=== PATIENT | female | born 1950 | race Caucasian/White ===

== ENCOUNTER 2017-07-29 06:19 | Inpatient (IN) ==
--- NOTE | 2017-07-28 21:20 | Discharge Summary ---
<Otilia Bello - Last Filed: 07/29/17 09:29> Date of Encounter: 07/29/17 - Discharge Diagnosis (1) Left rotator cuff tear arthropathy Priority: Primary Status: Chronic (2) Status post total replacement of left shoulder Priority: Primary Status: Acute (3) HTN (hypertension) Priority: Secondary Status: Chronic Qualifiers: Hypertension type: essential hypertension Qualified Code(s): I10 - Essential (primary) hypertension (4) SAVAGE (obstructive sleep apnea) Priority: Secondary Status: Chronic (5) Obesity Priority: Secondary Status: Chronic Qualifiers: Obesity type: unspecified obesity type Obesity classification: adult class 3 (BMI >= 40) Serious obesity comorbidity presence: without serious comorbidity Body mass index: BMI 40.0-44.9 - Discharge Medications Home Medications: Ascorbate Calcium [Vitamin C] 500 mg PO BID 04/30/16 [History] LORazepam [Ativan] 1 mg PO TID PRN 04/30/16 [History] Melatonin 6 mg PO HS 04/30/16 [History] hydroCHLOROthiazide [Hydrochlorothiazide] 25 mg PO DAILY 04/30/16 [History] Cholecalciferol (D-3) [Vitamin D] 5,000 unit PO DAILY 10/17/16 [History] Gluc/Michael-MSM#1/Vit C/Benjy/Bor [Cvs Etnojexmtei-Sutkto-PPD] 1 tab PO DAILY 10/17 [History] Magnesium Oxide [Magnesium] 400 mg PO BID 10/17/16 [History] OxyCODONE Immed Rel [Roxicodone 5 MG] 5 mg PO Q6HR PRN #28 tablet 07/28/17 [Rx] Alendronate Sodium 70 mg PO QWEEK 07/29/17 [History] Calcium Carbonate/Vitamin D3 [Calcium 500+D Tablet Chew] 1 tab PO DAILY [History] Fluticasone Propionate Nasal [Flonase] 1 spr NS DAILY PRN 07/29/17 [History] Propranolol [Inderal] 20 mg PO DAILY 07/29/17 [History] Trazodone HCl 100 mg PO HS PRN 07/29/17 [History] Allergies/Adverse Reactions: 3 Allergy/AdvReac Type Severity Reaction Status Date / Time adhesive Allergy Blister Verified 07/29/17 07:24 aloe Allergy Blister Verified 07/29/17 07:24 latex Allergy Rash Verified 07/29/17 07:24 metoprolol Allergy See Verified 07/29/17 07:24 Comments nabumetone Allergy Swelling Verified 07/29/17 07:24 of Lip/Tongue/Throat naproxen [From Naprosyn] Allergy See Verified 07/29/17 07:24 Comments propranolol [From Inderal LA] Allergy See Verified 07/29/17 07:24 Comments scopolamine Allergy Itching Verified 07/29/17 07:24 amitriptyline AdvReac See Verified 07/29/17 07:24 Comments metronidazole [From Flagyl] AdvReac See Verified 07/29/17 07:24 Comments piroxicam [From Feldene] AdvReac See Verified 07/29/17 07:24 Comments Primary care physician: Herve Chowdhury Jr, MD - Patient Status Disposition: Home, Self-Care Condition: Good - Discharge Instructions Follow Up With: Alexander Dominguez MD [Partnered Physician] - 08/27/17 7:35 am Otilia Bello PAC [Physician Embedded Developer] - 08/08/17 8:00 am () Herve Chowdhury Jr, MD [Primary Care Provider] - Additional Instructions: Discharge Instructions: Total Shoulder Please call [facility] ([phone]), your Primary Care Physician, or report to the Emergency Room if you have any of the following symptoms: Nausea, vomiting, fever greater that 101.5, swelling, chest pain, shortness of breath, increased pain/redness/drainage/odor for your incision site, numbness/ tingling, or any other concerning symptoms. ACTIVITY: Always keep your arm in the sling. Do not raise your arm away from your body. Do not use your arm to help with getting in or out of bed. No weight bearing permitted. Only perform those exercises given to you by your therapist. MEDICATIONS: Upon discharge resume your home medications. Take all the medications as prescribed. Take a stool softener if taking narcotic pain medications. Stool softeners are only effective if you drink enough fluids. Drink 6-8 glass of water or fluids a day, unless this is not allowed for another health problem. Despite using stool softeners, if you haven't had a bowel movement in 3 days, please switch to a gentle laxative. Gentle laxatives are sold over the counter. You should have a bowel movement within 24 hours, if not call the office. You will be discharged from the hospital with a prescription for pain medication. You are encouraged to decrease the use of narcotic pain medication as tolerated. Should you require a refill, please call the office. [facility] prescribes narcotic pain medication for only 4-6 weeks after surgery. If you require pain medication beyond this time period, you may be referred to your Primary Care Physician or to the Pain Clinic for further evaluation. Plan ahead for refills on pain medication as many narcotics either need to be picked up at the office or mailed. It is best to call 48-72 hours in advance of needing a prescription refill so you don't run out of medication. To help control the post-operative pain, you may take NSAIDs (Aleve,Advil, Motrin, Ibuprofen, Naprosyn) or Tylenol as prescribed on the bottle in addition to the pain medication. WOUND CARE: Leave the dressing on for 7-10 days. You may change the dressing if it becomes saturated greater than 50%. Do not get the dressing wet at anytime. Wash your hands with antibacterial soap, rinse and dry prior to any wound care. If you have jhon the visiting nurse or rehab facility can remove the stapes 10-14 days after surgery and place steri-strips across the wound. Leave the steri-strips in place until they fall off on their own. You may let water from the shower run on top of the steri-strips. If you do not have a visiting nurse or rehab facility, you will need to return to the office at 10-14 days for the jhon to be removed. If you have itching or redness around the dressing call the office. FOLLOW-UP: Please follow up with your surgeon in the orthopedic clinic, as scheduled - Hospital Course Hospital course: Ms. Lester is a 66 year old female - Time Spent with Patient Total time spent providing and/or coordinating discharge services: <Alexander Dominguez - Last Filed: 07/30/17 06:40> Date of Encounter: 07/30/17 Time of Encounter: 06:39 - Discharge Diagnosis (1) Left rotator cuff tear arthropathy Priority: Primary Status: Chronic (2) Status post total replacement of left shoulder Priority: Primary Status: Acute (3) HTN (hypertension) Priority: Secondary Status: Chronic Qualifiers: Hypertension type: essential hypertension Qualified Code(s): I10 - Essential (primary) hypertension (4) SAVAGE (obstructive sleep apnea) Priority: Secondary Status: Chronic (5) Obesity Priority: Secondary Status: Chronic Qualifiers: Obesity type: unspecified obesity type Obesity classification: adult class 3 (BMI >= 40) Serious obesity comorbidity presence: without serious comorbidity Body mass index: BMI 40.0-44.9 Primary care physician: Herve Chowdhury Jr, MD - Patient Status Functional capacity at discharge: independent ambulation Overall status at discharge: patient is progressing back to baseline - Hospital Course Hospital course: Ms. Lester is a 66 year old female Status post left total shoulder replacement reverse patient discharged home same day received antibiotics and physical therapy - Time Spent with Patient Total time spent providing and/or coordinating discharge services:
--- NOTE | 2017-07-29 06:40 | History & Physical Report ---
Date of Encounter: 07/29/17 Time of Encounter: 06:38 24 Hour HP Update - Instructions Instructions: If the History and Physical is less than 30 days old and was completed prior to A.M. admission and or procedure and has NOT been updated on calendar day of procedure please complete this update prior to performing procedure. - Update Patient reports changes in Medical Condition: No Changes in examination, assessment, or condition: No Changes in Medication: No Preop tests/diagnostics Reviewed: Yes Surgery Remains Indicated: Yes Consent for Planned Operative Procedure(s) Verified: Yes - Pre-Operative Checklist Preoperative Checklist Indicated: No Prophylactic Antibiotic Ordered: Yes Is VTE Prophylaxis Indicated?: Yes
[2017-07-29] MEDS ORDERED: CeFAZolin Pre 2,000 MG/100 ML 2,000 MG/100 ML BAG IVPB ONE (06:42)
[2017-07-29] MEDS ORDERED: Lidocaine -MPF 1% 2 ML VIAL ID ONE (06:42)
[2017-07-29] MEDS ORDERED: Plasma-Lyte A (PH 7.4) 1,000 ML IVC SCH (06:45)
[2017-07-29] MEDS ORDERED: Albuterol 2.5 MG/3 ML NEBULIZER IH ONE (07:00)
--- NOTE | 2017-07-29 07:10 | Anesthesia Evaluation PreOp ---
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 Any Significant HX Other Medical History: GERD (moderate control), Other (BMI 41) Anesthesia History: No Prior Anesthetic Complications Alcohol Use: rarely Drug use: none Medications and Allergies Albuterol Sulfate [Ventolin Hfa] 2 puff PO BID PRN 04/30/16 [History] Ascorbate Calcium [Vitamin C] 500 mg PO BID 04/30/16 [History] Budesonide/Formoterol 160/4.5 [Symbicort 160/4.5] 2 puff IH BIDR 04/30/16 [ History] Diclofenac Sodium [Voltaren] 1 appl TP QID PRN 04/30/16 [History] Fluticasone Propionate Nasal [Flonase] 2 spr NS DAILY PRN 04/30/16 [History] LORazepam [Ativan] 1 mg PO TID PRN 04/30/16 [History] Melatonin 6 mg PO HS 04/30/16 [History] Pantoprazole Sodium [Protonix] 40 mg PO DAILY 04/30/16 [History] Tizanidine HCl 4 mg PO Q8H PRN 04/30/16 [History] hydroCHLOROthiazide [Hydrochlorothiazide] 25 mg PO DAILY 04/30/16 [History] Cholecalciferol (D-3) [Vitamin D] 5,000 unit PO DAILY 10/17/16 [History] Furosemide [Lasix] 20 mg PO DAILY PRN MDD with potassium 10/17/16 [History] Gluc/Michael-MSM#1/Vit C/Benjy/Bor [Cvs Ecjgjszuybu-Kheost-UKX] 1 tab PO DAILY 10/17 [History] Ibuprofen [Motrin] 600 mg PO Q8HR PRN 10/17/16 [History] Magnesium Oxide [Magnesium] 400 mg PO BID 10/17/16 [History] OxyCODONE/APAP 5/325 [Percocet 5/325 MG] 1 each PO Q4HR PRN #50 tablet 10/17/16 [Rx] Potassium Chloride [Klor-Con 10] 10 meq PO DAILY PRN MDD with lasix 10/17/16 [ History] Sulfamethoxazole/Trimeth DS [Bactrim DS] 1 each PO BID #14 tablet 02/26/17 [Rx] OxyCODONE Immed Rel [Roxicodone 5 MG] 5 mg PO Q6HR PRN #28 tablet 07/28/17 [Rx] 3 Allergy/AdvReac Type Severity Reaction Status Date / Time adhesive Allergy Blister Verified 07/22/17 09:51 aloe Allergy Blister Verified 07/22/17 09:53 latex Allergy Rash Verified 07/22/17 09:51 metoprolol Allergy See Verified 07/22/17 09:51 Comments nabumetone Allergy Swelling Verified 07/22/17 09:51 of Lip/Tongue/Throat naproxen [From Naprosyn] Allergy See Verified 07/22/17 09:51 Comments propranolol [From Inderal LA] Allergy See Verified 07/22/17 09:51 Comments scopolamine Allergy Itching Verified 07/22/17 09:51 amitriptyline AdvReac See Verified 07/22/17 09:51 Comments metronidazole [From Flagyl] AdvReac See Verified 07/22/17 09:51 Comments piroxicam [From Feldene] AdvReac See Verified 04/10/17 15:20 Comments - Meds/Allergy Pre-op Review Medications Reviewed: Yes Allergies Reviewed: Yes Beta Blockers on Current Med List: No Anesthesia Results - Labs Laboratory Tests 07/22/17 07/22/17 07/22/17 10:06 10:06 10:06 WBC 8.9 Hgb 15.8 H Hct 48.6 H Plt Count 292 PT 10.7 INR 1.0 APTT 29.8 Sodium 140 Potassium 3.8 Chloride 102 Carbon Dioxide 28 BUN 18 Creatinine 0.84 Est GFR ( Amer) > 60 Est GFR (Non-Af Amer) > 60 BUN/Creatinine Ratio 21 - Imaging EKG: report reviewed, image reviewed (SR) Additional studies: -2015 TTE: LVEF 60-65% normal LV structure and function mild LV diastolic dysfunction normal RV structure and function no pulm htn trivial pericardial effusion; no tamponade Anesthesia Exam Last Vital Signs Temp 98.2 F 07/29/17 06:55 Pulse 84 07/29/17 06:55 Resp 18 10/23/17 06:55 BP 141/94 07/29/17 06:55 Pulse Ox 95 07/29/17 06:55 Weight: 96 kg NPO (# of Hours): > 8 hrs - HEENT Pupil (Motor): Pupils equal, EOMI Mallampati: I Teeth: Normal Oral Opening: Greater than 3 - PROPERTY MAINTENANCE SUPERVISOR LOC: Oriented PROPERTY MAINTENANCE SUPERVISOR Motor: Normal RUE, Normal LUE, Normal RLE, Normal LLE, Normal Face - Cardiac Rhythm: Regular Murmur: None - Pulmonary Breath Sounds: bilateral Clear Respiratory Effort: Symmetrical Anesthesia Assess/Plan ASA Score: 3 Modified Radha Scale for Level of Consciousness: Cooperative, oriented, and tranquil Anesthetic Plan: General, Regional Monitoring Plan: Standard Monitors Recovery Plan: PACU
[2017-07-29] MEDS ORDERED: *HR* Midazolam HCl 2 MG/2 ML VIAL ONE (07:27)
[2017-07-29] MEDS ORDERED: *HR* FentaNYL (PF) 100 MCG/2 ML VIAL ONE (07:27)
[2017-07-29] MEDS ORDERED: *HR* Propofol 200 MG/20 ML VIAL IVP ONE (07:27)
[2017-07-29] MEDS ORDERED: Lidocaine -MPF 2% 2 ML VIAL ONE (07:29)
[2017-07-29] MEDS ORDERED: ROPIVACAINE HCL/PF 0.5% 30 ML VIAL ONE (07:35)
[2017-07-29] MEDS ORDERED: Acetaminophen IV 1,000 MG/100 ML INFUS..BTL ONE (07:35)
--- NOTE | 2017-07-29 07:47 | Anesthesia Procedures ---
Date of Encounter: 07/29/17 Time of Encounter: 07:46 Procedures: Anesthesia - Nerve Block Procedure Date: 07/29/17 Time: 07:46 Allergies/Adv Reactions: Allergies adhesive Allergy (Verified 07/29/17 07:24) Blister aloe Allergy (Verified 07/29/17 07:24) Blister patient tested negative for latex allergy latex Allergy (Verified 07/29/17 07:24) Rash tested negative 01/2015 metoprolol Allergy (Verified 07/29/17 07:24) See Comments patient unknown nabumetone Allergy (Verified 07/29/17 07:24) Swelling of Lip/Tongue/Throat naproxen [From Naprosyn] Allergy (Verified 07/29/17 07:24) See Comments peticia propranolol [From Inderal LA] Allergy (Verified 07/29/17 07:24) See Comments bronchospasms scopolamine Allergy (Verified 07/29/17 07:24) Itching amitriptyline Adverse Reaction (Verified 07/29/17 07:24) See Comments tachycardia metronidazole [From Flagyl] Adverse Reaction (Verified 07/29/17 07:24) See Comments "felt like dying" piroxicam [From Feldene] Adverse Reaction (Verified 07/29/17 07:24) See Comments peticia Pre-op Diagnosis: left shoulder oa Surgical Procedure: left total shouler Checklist: Correct Patient Identifier, Correct procedure, History checked Correct side: Left Monitor Applied: EKG, BP, Pulse Oximetry Supplemental Oxygen via Nasal Cannula (L/min): 2 Sedation: Versed (mg): 2 Indication: Post Op Analgesia Pre-op Neuro Deficits: No Block Type: Supraclavicular Catheter placed: No Sterile Technique: Yes Ultrasound used: Yes Anatomy identified: Yes Visual spread of Local: Yes Neuro Stimulation: No Smooth Injection of Local: Yes Pain with Injection of Local: No Prep: Chlorhexadine Needle: 22 x 50 mm Stimuplex Local: Ropivacaine (0.5%) Volume (cc): 30 Number of Attempts: 1 Complications: None/effective block
[2017-07-29] MEDS ORDERED: Dexamethasone 4 MG/ML VIAL ONE (07:57)
[2017-07-29] MEDS ORDERED: Ondansetron 4 MG/2 ML VIAL ONE (07:57)
[2017-07-29] MEDS ORDERED: Ketorolac 30 MG/ML VIAL ONE (07:58)
[2017-07-29] MEDS ORDERED: *HR* Promethazine 25 MG/ML VIAL IVP PRN (08:06)
--- NOTE | 2017-07-29 08:36 | Orthopedic Operative Note ---
Date of procedure: 07/29/17 Pre-op diagnosis: Left shoulder cuff tear arthropathy shoulder arthritis Post-op diagnosis: same Procedure: Procedure: Total Shoulder Replacment Reverse, left Estimated blood loss: 100 cc Hardware: Metal and polyethylene replacement: Arthrex medium glenoid baseplate , 2 4.5 screws. 1 6.5 screw, 39+4 glenosphere, 6 humeral stem, poly insert 3 Exam Under anesthesia: Full motion and no instability Procedural Notes: Grade 3 arthritic changes humeral head glenoid socket. Recurrent tear rotator cuff. Operative procedure: The patient was brought to the operating room and placed on the operating room table. After general anesthesia was administered the operative shoulder was examined. Findings were noted. The patient was placed in the modified beachchair position. All pressure points were padded appropriately. And the head was stabilized in the neutral position. The operative extremity was prepped and draped in the sterile surgical fashion. The patient received IV antibiotics prior to skin incision. A standard deltopectoral approach was made to the operative shoulder. Incision was made to the skin and subcutaneous tissue,hemo stasis was obtained with Bovie cautery. Using careful blunt dissection the cephalic vein was identified and mobilized medially. The deltopectoral interval was developed and the clavipectoral fascia was incised. The subscap was released off the lesser tuberosity and tagged with #2 FiberWire suture subscap was irreparable.. The humerus was dislocated patient noted to have irreparable tear supraspinatus tendon, and the humeral cut was made along the anatomic neck. Anterior and posterior Bankart retractors were placed to expose the glenoid. The glenoid guide was seated and the centering hole was made. It was reamed with the appropriate reamer. The median baseplate was seated and secured with (2) 4.5 screws and one 6.5 screw. The baseplate was irrigated and dried and the 39+4 Glenosphere was seated and secured with the Jiménez taper. The Jiménez taper was tested and found to be secure the humerus was redislocated and prepared with the diaphyseal reamers, followed by a broaching process up to the appropriate size 6 in the patient's anatomic version. The metaphyseal reamer was then utilized. Trial reduction found the shoulder to be relocatable. Trial components were removed and the appropriate 6 stem was impacted in place in the patient's anatomic version. Trial reduction found the shoulder to be relocatable and stable with the appropriate 3. Trial component was removed and the real 3 was seated and secured the shoulder was reduced. The shoulder had excellent motion and excellent stability and no evidence of dislocation. The deep tissue was irrigated with pulse irrigation. The PA closed the shoulder. The deltopectoral interval was closed with a running #1 PDS suture, subcutaneous tissue was irrigated and closed with 0 PDS suture, the skin was closed with Dermabond. The patient was placed in a sterile dressing, abduction brace and extubated. The patient was then transferred to the recovery room in stable condition. Anesthesia: KAJAL Surgeon: Alexander Dominguez Glory Hole Tender: Rocio Hernandez Condition: stable Disposition: PACU
[2017-07-29] MEDS: *HR* HYDROmorphone (PF) 1 MG/ML SYRINGE IVP PRN ×2 (09:00→09:05)
[2017-07-29] MEDS ORDERED: *HR* HYDROmorphone (PF) 1 MG/ML SYRINGE ONE (09:03)
[2017-07-29] MEDS ORDERED: Ringers Solution, Lactated 1,000 ML ONE (09:05)
[2017-07-29 09:22] LABS: Hematocrit 41.7 % (35.3-44.9)
[2017-07-29 09:24] LABS: Hemoglobin 13.7 g/dL (11.5-15.4)
--- NOTE | 2017-07-29 09:35 | Anesthesia Evaluation Post Op ---
Date of Encounter: 07/29/17 Time of Encounter: 09:31 - Vital Signs Vital Signs: vss - Lungs Lungs: Clear Ascult./Percussion - Airway Airway: Non-obstructed - Cardiovascular Baseline Rhythm - Mental Status Mental Status: Alert & Oriented, Answers Appropriately - Pain Pain Scale used: Brisa (Faces) - Nausea Vomiting Nausea Vomiting: Not Present - Hydration Hydration: Ice chips - Discharge PostOp Status: Transfer Patient to floor
[2017-07-29] MEDS ORDERED: Ondansetron 4 MG/2 ML VIAL IVP PRN (09:43)
[2017-07-29] MEDS ORDERED: Ringers Solution, Lactated 1,000 ML IVC SCH (09:43)
[2017-07-29] MEDS ORDERED: Magnesium Oxide 400 MG TABLET PO SCH (09:43)
[2017-07-29] MEDS ORDERED: *HR* LORazepam 1 MG TABLET PO PRN (09:43)
[2017-07-29] MEDS ORDERED: Fluticasone Propionate Nasal 50 MCG/SPRAY BOTTLE NS PRN (09:43)
[2017-07-29] MEDS ORDERED: MOM Conc 10 ML UD.LIQ PO PRN (09:43)
[2017-07-29] MEDS ORDERED: Naloxone 0.4 MG/ML INJ IVP PRN (09:43)
[2017-07-29] MEDS ORDERED: *HR* OxyCODONE Immed Rel 5 MG TABLET PO PRN ×2 (09:43)
[2017-07-29] MEDS ORDERED: hydroCHLOROthiazide 25 MG TABLET PO SCH (09:43)
[2017-07-29] MEDS ORDERED: Ascorbic Acid 500 MG TABLET PO SCH (09:43)
[2017-07-29] MEDS ORDERED: Cholecalciferol (D-3) 1,000 UNIT TABLET PO SCH (09:43)
[2017-07-29] MEDS ORDERED: [UNRECOGNIZED DRUG - OTHER] PO SCH (09:43)
[2017-07-29] MEDS ORDERED: *HR* Enoxaparin 30 MG/0.3 ML SYRINGE IVP ONE (14:51)
[2017-07-29 15:11] VITALS: BP 116/74
[2017-07-29] MEDS ORDERED: *HR* Enoxaparin 30 MG/0.3 ML SYRINGE SQ ONE (15:14)
--- NOTE | 2017-07-29 15:41 | Physician Discharge Referral ---
Home Health/Hosp Referral Info Transfer to: Home Health Provider in Charge Post Discharge: PCP - Diagnosis (1) Left rotator cuff tear arthropathy Priority: Primary Status: Chronic (2) Status post total replacement of left shoulder Priority: Primary Status: Acute (3) HTN (hypertension) Priority: Secondary Status: Chronic (4) SAVAGE (obstructive sleep apnea) Priority: Secondary Status: Chronic (5) Obesity Priority: Secondary Status: Chronic - Respiratory Orders None Smoking Cessation: Smoking cessation has been advised. For more information, call the [place] Tobacco Quit Line at 8-111-EPDR-NOW. - Diet/Nutrition Diet/Nutrition Orders: Regular - Activity Activity Orders: Up ad sasha, Ambulate - Services Needed Following services are medically necessary services: Nursing, Home Health Aide, Physical Therapy, Occupational Therapy Other Treatments: Opsite dressing, leave intact until first post-operative visit. If dressing becomes >50% saturated, contact office, remove dressing and place appropriate dressing in its place. Do not allow for dressing to get wet .PT: Precautions x 6 weeks Apply cold therapy wrap 3-6x/day for 20 minutes at a time. Encourage ambulation throughout the day and incentive spirometer 10x/hour. Elevate affected extremity above heart as tolerated. Brace: Continue in Arm slingshot and physical therapy. Follow Total Shoulder precautions x 6 weeks. No lifting/pulling or pushing. - Transfer Medications Home Medications: Ascorbate Calcium [Vitamin C] 500 mg PO BID 04/30/16 [History] LORazepam [Ativan] 1 mg PO TID PRN 04/30/16 [History] Melatonin 6 mg PO HS 04/30/16 [History] hydroCHLOROthiazide [Hydrochlorothiazide] 25 mg PO DAILY 04/30/16 [History] Cholecalciferol (D-3) [Vitamin D] 5,000 unit PO DAILY 10/17/16 [History] Gluc/Michael-MSM#1/Vit C/Benjy/Bor [Cvs Spvndytgygf-Sadkxv-DKH] 1 tab PO DAILY 10/17 [History] Magnesium Oxide [Magnesium] 400 mg PO BID 10/17/16 [History] OxyCODONE Immed Rel [Roxicodone 5 MG] 5 mg PO Q6HR PRN #28 tablet 07/28/17 [Rx] Alendronate Sodium 70 mg PO QWEEK 07/29/17 [History] Calcium Carbonate/Vitamin D3 [Calcium 500+D Tablet Chew] 1 tab PO DAILY [History] Fluticasone Propionate Nasal [Flonase] 1 spr NS DAILY PRN 07/29/17 [History] Propranolol [Inderal] 20 mg PO DAILY 07/29/17 [History] Trazodone HCl 100 mg PO HS PRN 07/29/17 [History] Allergies/Adverse Reactions: 3 Allergy/AdvReac Type Severity Reaction Status Date / Time adhesive Allergy Blister Verified 07/29/17 07:24 aloe Allergy Blister Verified 07/29/17 07:24 latex Allergy Rash Verified 07/29/17 07:24 metoprolol Allergy See Verified 07/29/17 07:24 Comments nabumetone Allergy Swelling Verified 07/29/17 07:24 of Lip/Tongue/Throat naproxen [From Naprosyn] Allergy See Verified 07/29/17 07:24 Comments propranolol [From Inderal LA] Allergy See Verified 07/29/17 07:24 Comments scopolamine Allergy Itching Verified 07/29/17 07:24 amitriptyline AdvReac See Verified 07/29/17 07:24 Comments metronidazole [From Flagyl] AdvReac See Verified 07/29/17 07:24 Comments piroxicam [From Feldene] AdvReac See Verified 07/29/17 07:24 Comments Certification: Further, I certify that my clinical findings support that this patient is homebound (i.e. absences from home require considerable and taxing effort and are for medical reasons or druze services or infrequently or short duration when for other reasons) because: Homebound Reason: Post-surgery restriction and or conditions limit ability to leave home Attestation: My signature below is to certify that this patient is under my care and that I, or nurse practitioner, or a physician's emergency veterinary assistant working with me, has a face-to -face encounter with this patient.
[2017-07-29] MEDS ORDERED: ceFAZolin 2,000 MG in D5% in Water 100 ML IVPB SCH (16:00)
[2017-07-29] MEDS ORDERED: *HR* Enoxaparin 30 MG/0.3 ML SYRINGE SQ SCH ×2 (18:00)
[2017-07-29] MEDS ORDERED: Sennosides 8.6 MG TABLET PO PRN (21:00)
[2017-07-29] MEDS ORDERED: traZODone 50 MG TABLET PO PRN (21:00)
[2017-07-29] MEDS ORDERED: Melatonin 3 MG TABLET PO SCH (21:00)
[2017-07-29] MEDS ORDERED: Temazepam 15 MG CAPSULE PO PRN (21:00)
== END 2017-07-29 16:00 | disposition home or self-care (01) | DRG 483 ==
LOC: SAMDAY 06:19 → 3NENU 09:35
PROVIDERS: ADMIT Orthopaedic Surgery; ATTEND Orthopaedic Surgery

== ENCOUNTER 2018-05-19 12:42 | Inpatient (IN) ==
--- NOTE | 2018-05-18 22:15 | Discharge Summary ---
<Alexander Dominguez - Last Filed: 05/19/18 14:09> Orders not resulted at time of discharge: Pending orders 05/19/18 00:01 XR knee LT limited 1-2V [XR] Routine H/H [Hemoglobin and Hematocrit] [HEME] Routine 05/19/18 08:05 US anesthesia pain block [US] Routine Date of Encounter: 05/19/18 - Discharge Diagnosis (1) Morbid obesity with BMI of 40.0-44.9, adult Priority: Secondary Status: Chronic (2) Arthritis of knee, left Priority: Primary Status: Chronic (3) Status post total knee replacement, left Priority: Primary Status: Acute (4) Status post total replacement of left shoulder Priority: Secondary Status: Chronic (5) Asthma Priority: Secondary Status: Chronic Qualifiers: Asthma severity: unspecified severity Asthma persistence: unspecified Asthma complication type: uncomplicated Qualified Code(s): J45.909 - Unspecified asthma, uncomplicated (6) HTN (hypertension) Priority: Secondary Status: Chronic Qualifiers: Hypertension type: unspecified Qualified Code(s): I10 - Essential (primary ) hypertension (7) SAAVGE (obstructive sleep apnea) Priority: Secondary Status: Chronic - Hospital Course Hospital course: Ms. Lester is a 67 year old female - Time Spent with Patient Total time spent providing and/or coordinating discharge services: - Discharge Medications Home Medications: Aspirin Enteric Coated [Aspirin EC] 325 mg PO BID 10 Days #20 tablet. [Rx] Albuterol Sulfate [Ventolin Hfa] 2 puff IH Q4H PRN 05/19/18 [History] Ascorbate Calcium [Vitamin C] 500 mg PO DAILY 05/19/18 [History] Budesonide/Formoterol 160/4.5 [Symbicort 160/4.5] 2 puff IH BIDR 05/19/18 [ History] Calcium Carbonate/Vitamin D3 [Calcium 600 + Vit D Softgel] 1 cap PO BID [History] Cranberry 500 mg PO DAILY 05/19/18 [History] Cyanocobalamin (Vitamin B-12) [Vitamin B-12] 1,000 mcg PO DAILY 05/19/18 [ History] Ergocalciferol (VITAMIN D2) [Vitamin D] 400 unit PO DAILY 05/19/18 [History] Fluticasone Propionate Nasal [Flonase] 2 spr NS DAILY PRN 05/19/18 [History] LORazepam [Ativan] 1 mg PO HS 05/19/18 [History] Magnesium Oxide [Magnesium] 400 mg PO DAILY 05/19/18 [History] Melatonin 5 mg PO HS PRN 05/19/18 [History] Multivitamin [One Daily Multivitamin] 1 tab PO DAILY 05/19/18 [History] Pantoprazole Sodium [Protonix] 40 mg PO DAILY 05/19/18 [History] Pramipexole Di-HCl [Pramipexole Dihydrochloride] 0.125 mg PO HS 05/19/18 [ History] Trazodone HCl 200 mg PO HS PRN 05/19/18 [History] hydroCHLOROthiazide [Hydrochlorothiazide] 25 mg PO DAILY 05/19/18 [History] OxyCODONE Immed Rel [Roxicodone 5 MG] 5 mg PO Q4HR 05/22/18 [History] Allergies/Adverse Reactions: 3 Allergy/AdvReac Type Severity Reaction Status Date / Time adhesive Allergy Blister Verified 07/29/17 07:24 aloe Allergy Blister Verified 07/29/17 07:24 latex Allergy Rash Verified 07/29/17 07:24 metoprolol Allergy See Verified 07/29/17 07:24 Comments nabumetone Allergy Swelling Verified 07/29/17 07:24 of Lip/Tongue/Throat naproxen [From Naprosyn] Allergy See Verified 07/29/17 07:24 Comments propranolol [From Inderal LA] Allergy See Verified 07/29/17 07:24 Comments scopolamine Allergy Itching Verified 07/29/17 07:24 amitriptyline AdvReac See Verified 07/29/17 07:24 Comments metronidazole [From Flagyl] AdvReac See Verified 07/29/17 07:24 Comments piroxicam [From Feldene] AdvReac See Verified 07/29/17 07:24 Comments Primary care physician: Claudine Saha CNP - Patient Status Disposition: Transfer Inpatient Rehab Fac Condition: Good - Discharge Instructions Follow Up With: Alexander Dominguez MD [Partnered Physician] - 06/18/18 5:10 pm Otilia Bello PAC [Physician Syrup Mixer Assistant] - 05/29/18 8:00 am (Wednesday, June 06, 2018 09:45 Sunday, August 19, 2018 08:00) Korey Evans MD [Partnered Physician] - 07/25/18 1:00 pm Claudine Saha CNP [Primary Care Provider] - Additional Instructions: Discharge Instructions: Total Knee Replacement Please call [facility] ([phone]), your Primary Care Physician, or report to the Emergency Room if you have any of the following symptoms: Nausea, vomiting, fever greater that 101.5, swelling, chest pain, shortness of breath, increased pain/redness/drainage/odor for your incision site, numbness/ tingling, or any other concerning symptoms. ACTIVITY:Weight-bearing as tolerated. You may progress off support (crutches or walker) as tolerated. Incentive Spirometer 10 times an hour. MEDICATIONS: Upon discharge resume your home medications. Take all the medications as prescribed. Take a stool softener if taking narcotic pain medications. Stool softeners are only effective if you drink enough fluids. Drink 6-8 glass of water or fluids a day, unless this is not allowed for another health problem. Despite using stool softeners, if you haven't had a bowel movement in 3 days, please switch to a gentle laxative. Gentle laxatives are sold over the counter. You should have a bowel movement within 24 hours, if not call the office. You will be discharged from the hospital with a prescription for pain medication. You are encouraged to decrease the use of narcotic pain medication as tolerated. Should you require a refill, please call the office. [facility] prescribes narcotic pain medication for only 4-6 weeks after surgery. If you require pain medication beyond this time period, you may be referred to your Primary Care Physician or to the Pain Clinic for further evaluation. Plan ahead for refills on pain medication as many narcotics either need to be picked up at the office or mailed. It is best to call 48-72 hours in advance of needing a prescription refill so you don't run out of medication. To help control the post-operative pain, you may take NSAIDs (Aleve,Advil, Motrin, Ibuprofen, Naprosyn) or Tylenol as prescribed on the bottle in addition to the pain medication. ANTICOAGULATION (blood thinners): Continue your Aspirin, Lovenox or Coumadin as prescribed to help prevent a blood clot in the leg or in the lungs. As long as your incision remains dry and you tolerate the NSAIDs (Aleve, Advil, Motrin, ibuprofen, naprosyn), it is OK to use the NSAIDS while you are taking your anticoagulation medication. Should your incision start to drain, stop the NSAID and contact our office. Common symptoms of blood clot in the legs include: localized pain, swelling, calf tenderness, redness or discoloration of the skin. Blood clot in the lung symptoms include: shortness of breath, rapid pulse, sweating, and chest pain that worsens with deep breathing, coughing up blood, lightheadedness, feelings of anxiety. If you experience any of these symptoms notify your physician immediately, go to the emergency room, or if having trouble breathing, call 911. WOUND CARE: Leave the dressing on for 7 to 10days. You may change the dressing if it becomes saturated greater than 50%. Do not get the dressing wet at anytime. Wash your hands with antibacterial soap, rinse and dry prior to any wound care. If you have jhon the visiting nurse or rehab facility can remove the stapes 10-14 days after surgery and place steri-strips across the wound. Leave the steri-strips in place until they fall off on their won. You may let water from the shower run on top of the steri-strips. If you do not have a visiting nurse or rehab facility, you will need to return to the office at 10-14 days for the jhon to be removed. If you have itching or redness around the dressing call the office. FOLLOW-UP: Please follow up with your surgeon in the orthopedic clinic in 4 weeks from the day of surgery. If you have jhon that need to be removed, you will need to come back to the office in 10-14 days from the day of surgery. <Rocio Dunlap - Last Filed: 05/22/18 14:57> - NOTES TO OUTPATIENT PROVIDER Notes to Outpatient Provider: will need to recheck potassium in 1 week. Orders not resulted at time of discharge: Pending orders 05/19/18 08:05 US anesthesia pain block [US] Routine Date of Encounter: 05/22/18 Time of Encounter: 14:58 - Discharge Diagnosis (1) Status post total knee replacement, left Priority: Primary Status: Acute (2) Morbid obesity with BMI of 40.0-44.9, adult Priority: Secondary Status: Chronic (3) Arthritis of knee, left Priority: Secondary Status: Chronic (4) Asthma Priority: Secondary Status: Chronic Qualifiers: Asthma severity: unspecified severity Asthma persistence: unspecified Asthma complication type: uncomplicated Qualified Code(s): J45.909 - Unspecified asthma, uncomplicated (5) HTN (hypertension) Priority: Secondary Status: Chronic Qualifiers: Hypertension type: unspecified Qualified Code(s): I10 - Essential (primary ) hypertension (6) Left rotator cuff tear arthropathy Priority: Secondary Status: Chronic (7) SAVAGE (obstructive sleep apnea) Priority: Secondary Status: Chronic (8) Obesity Priority: Secondary Status: Chronic Qualifiers: Obesity type: due to excess calories Obesity classification: adult class 3 (BMI >= 40) Serious obesity comorbidity presence: without serious comorbidity Body mass index: BMI 40.0-44.9 Qualified Code(s): E66.01 - Morbid (severe) obesity due to excess calories; Z68.41 - Body mass index (BMI) 40.0-44.9, adult (9) Status post total replacement of left shoulder Priority: Secondary Status: Chronic - Hospital Course Hospital course: Ms. Lester is a 67 year old female who is POD# 3 s/p left TKR 05/19/18 with a history of HTN, SAVAGE, obesity, asthma. She did develop hyponatremia and hypokalemia which improved after given supplementation on 05/21/18. Otherwise she had an uneventful hospital course. She is stable for discharge. Patient was evaluated by Dr. Dominguez this morning and determined ready for discharge. Afebrile, vital signs stable. Dressings c/d/i with minimal drainage. no calf tenderness to palpation. Grossly NV intact Labs reviewed. H/H - stable, asymptomatic 10.1/29.3 K 23.1, Na 132 - given supplement yesterday. Should be rechecked in 1 week Pain control: adequate Participating in PT. All questions and concerns addressed. Educated on use of incentive spirometer. Encouraged ambulation and proper hydration. Patient educated on post-operative restrictions and post-operative care. Assessment and plan: Continue with postoperative care Discharge plan: Accepted at [facility], pending authorization. - Time Spent with Patient Total time spent providing and/or coordinating discharge services: Date of admission: 05/19/18 17:41 Primary care physician: Claudine Saha CNP Consults: 05/19/18 18:20 Consult to Occupational Therapy [CONS] Routine Comment: Evaluate, develop and implement POC Reason for Consult: post knee surgery Does patient have active BEDREST order?: No Is patient medically & hemodynamically stable?: Yes Consult to Orthopedic Navigator [CONS] [CONS] Routine Consult to Physical Therapy [CONS] Routine Comment: Evaluate, develop and impliment POC Reason for Consult: post knee surgery Does patient have active BEDREST order?: No Is patient medically & hemodynamically stable?: Yes Consult to Skin Carver [CONS] Routine Reason for SW Consult: post op joint replacement RT Post Op Consult [CONS] Routine Discharging clinician: Alexander Dominguez Anticipated date of discharge: 05/22/18 Labs on day of discharge: Labs from last 24 hours 05/22/18 05/22/18 07:48 07:48 Hgb 10.1 L Hct 29.3 L Sodium 132 L Potassium 3.1 L Chloride 104 Carbon Dioxide 31 H BUN 9 Creatinine 0.62 Est GFR ( Amer) > 60 Est GFR (Non-Af Amer) > 60 BUN/Creatinine Ratio 15 Glucose 112 H Calculated Osmolality 273 L Calcium 8.3 L - Impressions ITS Impressions Knee X-Ray 05/19/18 00:01 IMPRESSION: Normal postoperative examination of the left knee. D/ / Petey Bravo MD / Petey Bravo MD Interpreting Provider: Petey Bravo MD - Patient Status Functional capacity at discharge: uses cane/walker Overall status at discharge: patient is back to baseline - Diet and Activity Activity: as per physical therapy Diet: advance to your usual diet <Otilia Bello - Last Filed: 05/22/18 17:25> Date of Encounter: 05/22/18 - Discharge Diagnosis (1) Arthritis of knee, left Priority: Primary Status: Chronic (2) Status post total knee replacement, left Priority: Primary Status: Acute (3) Asthma Priority: Secondary Status: Chronic Qualifiers: Asthma severity: unspecified severity Asthma persistence: unspecified Asthma complication type: uncomplicated Qualified Code(s): J45.909 - Unspecified asthma, uncomplicated (4) HTN (hypertension) Priority: Secondary Status: Chronic Qualifiers: Hypertension type: unspecified Qualified Code(s): I10 - Essential (primary ) hypertension (5) SAVAGE (obstructive sleep apnea) Priority: Secondary Status: Chronic (6) Obesity Priority: Secondary Status: Chronic Qualifiers: Obesity type: due to excess calories Obesity classification: adult class 3 (BMI >= 40) Serious obesity comorbidity presence: without serious comorbidity Body mass index: BMI 40.0-44.9 Qualified Code(s): E66.01 - Morbid (severe) obesity due to excess calories; Z68.41 - Body mass index (BMI) 40.0-44.9, adult - Hospital Course Hospital course: Ms. Lester is a 67 year old female - Time Spent with Patient Total time spent providing and/or coordinating discharge services: Primary care physician: Claudine Saha CNP - Patient Status Functional capacity at discharge: uses cane/walker Overall status at discharge: patient is back to baseline
[2018-05-19] MEDS ORDERED: CeFAZolin Syr 2,000MG/20 ML 2,000 MG/20 ML SYRINGE IVPB ONE (13:05)
[2018-05-19] MEDS ORDERED: Albuterol 2.5 MG/3 ML NEBULIZER IH ONE (13:05)
--- NOTE | 2018-05-19 13:13 | History & Physical Report ---
Date of Encounter: 05/19/18 Time of Encounter: 13:13 24 Hour HP Update - Instructions Instructions: If the History and Physical is less than 30 days old and was completed prior to A.M. admission and or procedure and has NOT been updated on calendar day of procedure please complete this update prior to performing procedure. - Update Patient reports changes in Medical Condition: No Changes in examination, assessment, or condition: No Changes in Medication: No Preop tests/diagnostics Reviewed: Yes Surgery Remains Indicated: Yes Consent for Planned Operative Procedure(s) Verified: Yes - Pre-Operative Checklist Preoperative Checklist Indicated: No Prophylactic Antibiotic Ordered: Yes Is VTE Prophylaxis Indicated?: Yes
[2018-05-19] MEDS ORDERED: Ringers Solution, Lactated 1,000 ML IVC SCH (13:15)
[2018-05-19] MEDS ORDERED: *HR* OxyCODONE Immed Rel 5 MG TABLET PO PRN (13:27)
[2018-05-19] MEDS ORDERED: *HR* Promethazine 25 MG/ML VIAL IVP PRN (13:27)
[2018-05-19] MEDS ORDERED: Ethanol\\Acetic Acid\\Na Ace\\Ben 1,000 ML IRRIG.SOLN IR ONE (13:49)
[2018-05-19] MEDS ORDERED: Scopolamine Patch 1.5 MG PATCH.TD72 TD ONE (13:49)
[2018-05-19] MEDS ORDERED: Acetaminophen IV 1,000 MG/100 ML INFUS..BTL IVPB ONE (13:50)
--- NOTE | 2018-05-19 13:51 | Anesthesia Evaluation PreOp ---
Date of Encounter: 05/19/18 Time of Encounter: 13:48 - Past History Planned Operation: RIGHT TKA Cardiac History: HTN, Arrhythmia (PAROXYSMAL AFIB) Pulmonary History: Asthma, SAVAGE Dx (CPAP) EYEGLASS CUTTER History: Other (DI) Other Medical History: GERD (CONTROLLED), Other (OBESITY, BMI 43) Anesthesia History: No Prior Anesthetic Complications, Past Anesthesia Alcohol Use: none Drug use: none Medications and Allergies Aspirin Enteric Coated [Aspirin EC] 325 mg PO BID 10 Days #20 tablet.dr [Rx] OxyCODONE Immed Rel [Roxicodone 5 MG] 5 mg PO Q6HR PRN 7 Days #28 tablet [Rx] Albuterol Sulfate [Ventolin Hfa] 2 puff IH Q4H PRN 05/19/18 [History] Ascorbate Calcium [Vitamin C] 500 mg PO DAILY 05/19/18 [History] Budesonide/Formoterol 160/4.5 [Symbicort 160/4.5] 2 puff IH BIDR 05/19/18 [ History] Calcium Carbonate/Vitamin D3 [Calcium 600 + Vit D Softgel] 1 cap PO BID [History] Cranberry 500 mg PO DAILY 05/19/18 [History] Cyanocobalamin (Vitamin B-12) [Vitamin B-12] 1,000 mcg PO DAILY 05/19/18 [ History] Ergocalciferol (VITAMIN D2) [Vitamin D] 400 unit PO DAILY 05/19/18 [History] Fluticasone Propionate Nasal [Flonase] 2 spr NS DAILY PRN 05/19/18 [History] LORazepam [Ativan] 1 mg PO HS 05/19/18 [History] Magnesium Oxide [Magnesium] 400 mg PO DAILY 05/19/18 [History] Melatonin 5 mg PO HS PRN 05/19/18 [History] Multivitamin [One Daily Multivitamin] 1 tab PO DAILY 05/19/18 [History] Pantoprazole Sodium [Protonix] 40 mg PO DAILY 05/19/18 [History] Pramipexole Di-HCl [Pramipexole Dihydrochloride] 0.125 mg PO HS 05/19/18 [ History] Trazodone HCl 200 mg PO HS PRN 05/19/18 [History] hydroCHLOROthiazide [Hydrochlorothiazide] 25 mg PO DAILY 05/19/18 [History] 3 Allergy/AdvReac Type Severity Reaction Status Date / Time adhesive Allergy Blister Verified 07/29/17 07:24 aloe Allergy Blister Verified 07/29/17 07:24 latex Allergy Rash Verified 07/29/17 07:24 metoprolol Allergy See Verified 07/29/17 07:24 Comments nabumetone Allergy Swelling Verified 07/29/17 07:24 of Lip/Tongue/Throat naproxen [From Naprosyn] Allergy See Verified 07/29/17 07:24 Comments propranolol [From Inderal LA] Allergy See Verified 07/29/17 07:24 Comments scopolamine Allergy Itching Verified 07/29/17 07:24 amitriptyline AdvReac See Verified 07/29/17 07:24 Comments metronidazole [From Flagyl] AdvReac See Verified 07/29/17 07:24 Comments piroxicam [From Feldene] AdvReac See Verified 07/29/17 07:24 Comments - Meds/Allergy Pre-op Review Medications Reviewed: Yes Allergies Reviewed: Yes Beta Blockers on Current Med List: No Anesthesia Results - Labs Laboratory Tests 05/14/18 05/14/18 05/14/18 14:44 14:44 14:44 Hgb 15.8 H Hct 47.3 H Plt Count 238 Potassium 4.1 BUN 19 Creatinine 0.92 Est GFR (Non-Af Amer) > 60 Hemoglobin A1c 5.5 - Imaging EKG: report reviewed (08/2017: SINUS RHYTHM) Additional studies: TTE 08/2017: LVEF 60-65%. Normal LV chamber size, wall thickness and function. Mild left ventricular diastolic dysfunction. Normal right ventricular structure and function. No evidence of pulmonary hypertension. No significant valvular dysfunction. Anesthesia Exam O2 Sat Height 1.5 m Weight 96.162 kg BMI 43 Vital Signs Temp Pulse Resp BP Pulse Ox 98.0 F 93 18 140/78 95 05/19/18 13:11 05/19/18 13:11 05/19/18 13:11 05/19/18 13:11 05/19/18 13:11 NPO (# of Hours): 8 - HEENT Pupil (Motor): Pupils equal Mallampati: I Teeth: Normal Oral Opening: Greater than 3 - EYEGLASS CUTTER LOC: Oriented - Cardiac Rhythm: Regular - Pulmonary Breath Sounds: bilateral Clear Respiratory Effort: Symmetrical Anesthesia Assess/Plan ASA Score: 3 Modified Radha Scale for Level of Consciousness: Cooperative, oriented, and tranquil Anesthetic Plan: General, Regional (FOR POST OPERATIVE PAIN CONTROL) Monitoring Plan: Standard Monitors Recovery Plan: PACU Anes Supervising Prov Stmt: Patient informed and consented. ALTERNATIVE ANESTHESIA TECHNIQUES, GA VS SAB, RISKS AND BENEFITS DISCUSSED. PATIENT PREFERS GA, AND WISHES TO PROCEED.
[2018-05-19] MEDS ORDERED: ROPIVACAINE HCL/PF 0.5% 30 ML VIAL ONE (13:53)
[2018-05-19] MEDS ORDERED: Bupivacaine/Clonidine Syringe 1 EACH SYRINGE ONE (13:53)
--- NOTE | 2018-05-19 14:51 | Anesthesia Procedures ---
Date of Encounter: 05/19/18 Time of Encounter: 14:52 Procedures: Anesthesia - Nerve Block Procedure Date: 05/19/18 Time: 14:49 Allergies/Adv Reactions: noted Pre-op Diagnosis: arthritis l knee Surgical Procedure: tka L Checklist: Correct Patient Identifier Correct side: Left Blood Thinner: No Monitor Applied: EKG, BP, Pulse Oximetry Supplemental Oxygen via Nasal Cannula (L/min): 3 Sedation: Versed (mg): 2 Sedation: Fentanyl (mcg): 100 Indication: Post Op Analgesia Pre-op Neuro Deficits: No Block Type: Femoral, Other (ipak) Catheter placed: No Sterile Technique: Yes Ultrasound used: Yes Anatomy identified: Yes Visual spread of Local: Yes Neuro Stimulation: No Blood on Needle Aspiration: No Smooth Injection of Local: Yes Pain with Injection of Local: No Prep: Chlorhexadine Needle: 22 x 50 mm Stimuplex Local: Ropivacaine (0.25 30cc) Volume (cc): 30 Number of Attempts: 1 Vitals: Vital Signs/O2 Sat, Most Current Temp Pulse Resp BP Pulse Ox 98.0 F 90 16 155/92 99 05/19/18 13:11 05/19/18 14:12 05/19/18 14:12 05/19/18 14:12 05/19/18 14:12 Comments: aseptic, tatianna well
[2018-05-19] MEDS ORDERED: *HR* FentaNYL (PF) 100 MCG/2 ML VIAL ONE ×3 (14:53→16:07)
[2018-05-19] MEDS ORDERED: Lidocaine -MPF 2% 2 ML VIAL ONE (14:53)
[2018-05-19] MEDS ORDERED: Dexamethasone 4 MG/ML VIAL ONE (14:53)
[2018-05-19] MEDS ORDERED: *HR* Propofol 200 MG/20 ML VIAL IVP ONE (14:53)
[2018-05-19] MEDS ORDERED: Ondansetron 4 MG/2 ML VIAL ONE (14:53)
[2018-05-19] MEDS ORDERED: *HR* Midazolam HCl 2 MG/2 ML VIAL ONE (14:53)
--- NOTE | 2018-05-19 15:32 | Orthopedic Operative Note ---
Date of procedure: 05/19/18 Pre-op diagnosis: Left knee arthritis Post-op diagnosis: same Procedure: Procedure: Left robotic-assisted Total knee replacement Estimated blood loss: 400 cc Hardware: Metal and polyethylene replacement. [place] Femur: 4 Tibia: 4 TS insert: 9 Patella: 36 Exam Under anesthesia: 2 degree flexion contracture 11 degree varus as calculated by the robot full flexion and no instability Procedural Notes: Grade 4 arthritic changes all 3 compartments. Operative procedure: The patient was brought to the operating room and placed on the operating room table. After general anesthesia was administered the operative knee was examined. Findings were noted in the exam under anesthesia. The operative extremity was prepped and draped in sterile surgical fashion. The patient received IV antibiotics prior to skin incision. A standard midline incision was made centered over the patella. The incision was made through the skin and subcutaneous tissue. A medial parapatellar tendon approach was performed. Care was taken to preserve tissue along the medial aspect of the patella. And to protect the patella tendon. The deep MCL was released off the medial tibia. The infra patella fat pad was excised. The patella was everted and cut was made at the level of the insertion of the quadriceps and patella tendon. The patella was sized to a 36 the guide was seated and the lug holes are drilled. Knee was brought into flexion. Patient noted to have grade 4 arthritic changes all 3 compartments. Steinmann pins were placed in the tibia and the femur for the tibial and femoral arrays respectively. Checkpoints were also placed in the tibia and the femur for calculation purposes. The knee including the femur and the tibial registered. Osteophytes, ACL and PCL were excised at this point. Extension and flexion were assessed with a valgus stress components were adjusted on the computer to balance the knee. Femoral cuts were made first with robotic assistance, these included the anterior cut posterior cuts chamfer cuts. Tibial cut was then performed with robotic assistance as well. Bone fragments were removed, as well as the medial and lateral meniscus. The size 4 femoral guide was seated box cut was made lug holes are drilled. The size 4 tibial tray was seated and prepared with the fin cutter. Trial reduction with the 9 TS Marycruz revealed extension of 0 degree and 5 degree varus full flexion. No varus valgus instability. Trial reduction revealed excellent patella tracking. All trial components were removed all bony surfaces were irrigated. The Tibia was seated followed by the femur, The Marycruz size 9 was seated and secured patella. Patient had similar findings for motion and stability. The knee was closed by the PA. The knee was then irrigated out with 2 L of pulse irrigation. The extensor mechanism was closed with #2 FiberWire suture and #2 PDS suture. The subcutaneous tissue was then irrigated and closed deep with #1 PDS suture superficially with 0 PDS suture and skin was closed with zip tie The patient was then placed in a sterile dressing and a postoperative brace extubated and transferred to recovery room in stable condition. Anesthesia: GETA Surgeon: Alexander Dominguez Was there an operator assistant i cementing present: No Estimated blood loss (cc): 400 Condition: stable Disposition: PACU
[2018-05-19] MEDS: *HR* FentaNYL (PF) 100 MCG/2 ML VIAL IVP PRN ×3 (16:09→17:12)
[2018-05-19 16:36] LABS: Hematocrit 38.6 % (35.3-44.9); Hemoglobin 13.2 g/dL (11.5-15.4)
--- NOTE | 2018-05-19 17:34 | Anesthesia Evaluation Post Op ---
Date of Encounter: 05/19/18 Time of Encounter: 17:33 Notes: Patient's vital signs have been reviewed. Patient is stable postoperatively and has adequately recovered from anesthesia. Patient is determined to have stable airway patency and respiratory function including respiratory rate and oxygen saturation. Patient has a stable heart rate, blood pressure and adequate hydration. Patients mental status is acceptable. Patients temperature is appropriate. Pain and nausea are adequately controlled. - Discharge PostOp Status: Transfer Patient to floor
[2018-05-19] MEDS ORDERED: *HR* Enoxaparin 30 MG/0.3 ML SYRINGE SQ SCH (18:00)
[2018-05-19] MEDS ORDERED: Fluticasone Propionate Nasal 50 MCG/SPRAY BOTTLE NS PRN (18:20)
[2018-05-19] MEDS ORDERED: Naloxone 0.4 MG/ML INJ IVP PRN (18:20)
[2018-05-19] MEDS ORDERED: traMADol 50 MG TABLET PO PRN (18:20)
[2018-05-19] MEDS ORDERED: Sennosides 8.6 MG TABLET PO PRN (18:20)
[2018-05-19] MEDS ORDERED: MOM Conc 10 ML UD.LIQ PO PRN (18:20)
[2018-05-19] MEDS ORDERED: Melatonin 3 MG TABLET PO PRN (18:20)
[2018-05-19] MEDS ORDERED: Temazepam 15 MG CAPSULE PO PRN (18:20)
[2018-05-19] MEDS ORDERED: Ondansetron 4 MG/2 ML VIAL IVP PRN (18:20)
[2018-05-19] MEDS: *HR* LORazepam 1 MG TABLET PO SCH (20:30)
[2018-05-19] MEDS: Budesonide/Formoterol 160/4.5 1 PUFF INH IH SCH (21:15)
[2018-05-19] MEDS: traZODone 50 MG TABLET PO PRN (22:13)
[2018-05-19] MEDS: *HR* OxyCODONE/APAP 5/325 TABLET PO PRN (23:16)
[2018-05-19] MEDS: Ringers Solution, Lactated 1,000 ML IVC SCH (23:18)
[2018-05-20 02:25] LABS: Hemoglobin 11.3 g/dL (11.5-15.4)
[2018-05-20 02:44] LABS: BUN/Creatinine Ratio 19 (6-26); Blood Urea Nitrogen 13 mg/dL (8-23); Calcium 8.2 mg/dL (8.6-10.3); Carbon Dioxide 25 mEq/L (23-29); Chloride 105 mEq/L (98-107); Glucose 154 mg/dL (70-105); Osmolality,Calculated 285 (280-300); Potassium 3.6 mEq/L (3.5-5.1); Sodium 136 mEq/L (136-145); eGFR For Non-African Americans > 60 (> 60)
[2018-05-20] MEDS: *HR* OxyCODONE Immed Rel 5 MG TABLET PO PRN ×3 (03:18→18:58)
[2018-05-20] MEDS: *HR* OxyCODONE/APAP 5/325 TABLET PO PRN ×3 (05:23→22:24)
[2018-05-20] MEDS: *HR* Enoxaparin 30 MG/0.3 ML SYRINGE SQ SCH ×2 (05:24→17:56)
--- NOTE | 2018-05-20 06:46 | Orthopedics Progress Note ---
Date of Encounter: 05/20/18 Time of Encounter: 06:45 - Assessment and Plan (1) Morbid obesity with BMI of 40.0-44.9, adult Current Visit: Yes Status: Chronic (2) Arthritis of knee, left Current Visit: No Status: Chronic (3) Status post total knee replacement, left Current Visit: No Status: Acute (4) Status post total replacement of left shoulder Current Visit: No Status: Chronic (5) Asthma Current Visit: No Status: Chronic Qualifiers: Asthma severity: unspecified severity Asthma persistence: unspecified Asthma complication type: uncomplicated Qualified Code(s): J45.909 - Unspecified asthma, uncomplicated (6) HTN (hypertension) Current Visit: No Status: Chronic Qualifiers: Hypertension type: unspecified Qualified Code(s): I10 - Essential (primary ) hypertension (7) SAVAGE (obstructive sleep apnea) Current Visit: No Status: Chronic Subjective Interval history: Patient was seen this morning doing well without complaints. Afebrile vital signs stable. Operative extremity: Neurovascularly intact Dressing clean dry and intact Calves nontender Assessment and plan: Continue with postoperative care Hematocrit 34 plan for discharge tomorrow Objective Vital signs: Vital Signs Temp Pulse Resp BP Pulse Ox 05/20/18 04:02 98.4 F 80 16 105/73 95 05/19/18 22:05 97.9 F 82 16 104/68 92 05/19/18 21:15 16 98 05/19/18 20:45 69 126/79 05/19/18 19:47 100 05/19/18 19:45 97.4 F L 81 16 133/72 100 05/19/18 19:13 97.9 F 67 16 120/67 100 05/19/18 18:30 97.9 F 67 16 120/67 100 05/19/18 17:42 69 16 134/78 100 05/19/18 17:32 97.2 F L 66 16 132/78 100 05/19/18 17:22 68 16 135/63 100 05/19/18 17:12 67 16 130/64 100 05/19/18 17:02 97.1 F L 67 16 123/69 99 05/19/18 16:52 63 16 120/78 100 05/19/18 16:42 61 16 91/51 98 05/19/18 16:32 97.0 F L 64 16 101/79 99 05/19/18 16:22 54 16 89/46 99 05/19/18 16:12 64 16 91/47 100 05/19/18 16:02 97.1 F L 74 16 115/69 100 05/19/18 14:12 90 16 155/92 99 05/19/18 13:57 91 18 157/98 95 05/19/18 13:11 98.0 F 93 18 140/78 95 Intake and Output 05/19/18 05/19/18 05/20/18 15:59 23:59 07:59 Intake Total 100 / 100 100 / 100 Output Total 400 / 400 0 / 0 Balance -400 / -400 100 / 100 100 / 100 Intake: IV Fluids 100 / 100 Ancef 2,000 MG In 0.9 % Sodium 100 / 100 Chloride 100 ML @ 200 mls/hr IVPB Q8H [facility] Rx#:[id number] Oral 0 / 0 100 / 100 Output: Urine 0 / 0 Estimated Blood Loss 400 / 400 Other: # Voids 1 1 Weight 96.162 kg - Labs CBC & BMP: 05/20/18 01:50 05/20/18 01:50 Labs: Abnormal lab results Hgb 11.3 g/dL (11.5-15.4) L D 05/20/18 01:50 Hct 34.0 % (35.3-44.9) L 05/20/18 01:50 Glucose 154 mg/dL (70-105) H 05/20/18 01:50 Calcium 8.2 mg/dL (8.6-10.3) L 05/20/18 01:50 - VTE Documentation of Mechanical Device: Venous foot pump, device Consult Discharge Plan - Plan Referrals: Claudine Saha, SCALER [Primary Care Provider] -
[2018-05-20] MEDS: Magnesium Oxide 400 MG TABLET PO SCH (08:42)
[2018-05-20] MEDS: hydroCHLOROthiazide 25 MG TABLET PO SCH (08:43)
[2018-05-20] MEDS: Multivit/Ca/Min/Fe/FA 1 TAB TABLET PO SCH (08:43)
[2018-05-20] MEDS: Ascorbic Acid 500 MG TABLET PO SCH (08:43)
[2018-05-20] MEDS: Cholecalciferol (D-3) 1,000 UNIT TABLET PO SCH (08:44)
[2018-05-20] MEDS: Cyanocobalamin (B-12) 1,000 MCG TABLET PO SCH (08:44)
[2018-05-20] MEDS ORDERED: CRANBERRY 500 MG PO SCH (09:00)
[2018-05-20] MEDS: Budesonide/Formoterol 160/4.5 1 PUFF INH IH SCH ×2 (10:08→20:09)
[2018-05-20] MEDS: Ringers Solution, Lactated 1,000 ML IVC SCH (18:41)
--- NOTE | 2018-05-20 22:17 | Event Note ---
Date of Encounter: 05/20/18 Time of Encounter: 12:40 PCR - POD# 1 s/p left TKR 05/19/18 Patient seen at bedside, without complaints. A&O x 3 Afebrile, vital signs stable. Dressings c/d/i with minimal drainage. no calf tenderness to palpation. Labs reviewed. H/H - stable, asymptomatic 11.3/34.0 Pain control: adequate Participating in PT. All questions and concerns addressed. Educated on use of incentive spirometer. Encouraged ambulation and proper hydration. Patient educated on post-operative restrictions and post-operative care. Assessment and plan: Continue with postoperative care Discharge plan: ECF - swing bed. Per plan for [facility], pending authorization.
[2018-05-20] MEDS: *HR* LORazepam 1 MG TABLET PO SCH (22:20)
--- NOTE | 2018-05-20 22:20 | Physician Discharge Referral ---
ExtendedCare Referral Info Transfer To: [facility] Provider in Charge: Dr. Dominguez - Diagnosis (1) Status post total knee replacement, left Priority: Primary Status: Acute (2) Morbid obesity with BMI of 40.0-44.9, adult Priority: Secondary Status: Chronic (3) Arthritis of knee, left Priority: Secondary Status: Chronic (4) Asthma Priority: Secondary Status: Chronic (5) HTN (hypertension) Priority: Secondary Status: Chronic (6) Left rotator cuff tear arthropathy Priority: Secondary Status: Chronic (7) SAVAGE (obstructive sleep apnea) Priority: Secondary Status: Chronic (8) Obesity Priority: Secondary Status: Chronic (9) Status post total replacement of left shoulder Priority: Secondary Status: Chronic Expected Duration of Placement: <30 Prognosis: Good Aware of Diagnosis: Patient Aware of Prognosis: Patient - Transfer Medications Home Medications: Aspirin Enteric Coated [Aspirin EC] 325 mg PO BID 10 Days #20 tablet. [Rx] OxyCODONE Immed Rel [Roxicodone 5 MG] 5 mg PO Q6HR PRN 7 Days #28 tablet [Rx] Albuterol Sulfate [Ventolin Hfa] 2 puff IH Q4H PRN 05/19/18 [History] Ascorbate Calcium [Vitamin C] 500 mg PO DAILY 05/19/18 [History] Budesonide/Formoterol 160/4.5 [Symbicort 160/4.5] 2 puff IH BIDR 05/19/18 [ History] Calcium Carbonate/Vitamin D3 [Calcium 600 + Vit D Softgel] 1 cap PO BID [History] Cranberry 500 mg PO DAILY 05/19/18 [History] Cyanocobalamin (Vitamin B-12) [Vitamin B-12] 1,000 mcg PO DAILY 05/19/18 [ History] Ergocalciferol (VITAMIN D2) [Vitamin D] 400 unit PO DAILY 05/19/18 [History] Fluticasone Propionate Nasal [Flonase] 2 spr NS DAILY PRN 05/19/18 [History] LORazepam [Ativan] 1 mg PO HS 05/19/18 [History] Magnesium Oxide [Magnesium] 400 mg PO DAILY 05/19/18 [History] Melatonin 5 mg PO HS PRN 05/19/18 [History] Multivitamin [One Daily Multivitamin] 1 tab PO DAILY 05/19/18 [History] Pantoprazole Sodium [Protonix] 40 mg PO DAILY 05/19/18 [History] Pramipexole Di-HCl [Pramipexole Dihydrochloride] 0.125 mg PO HS 05/19/18 [ History] Trazodone HCl 200 mg PO HS PRN 05/19/18 [History] hydroCHLOROthiazide [Hydrochlorothiazide] 25 mg PO DAILY 05/19/18 [History] Allergies/Adverse Reactions: 3 Allergy/AdvReac Type Severity Reaction Status Date / Time adhesive Allergy Blister Verified 07/29/17 07:24 aloe Allergy Blister Verified 07/29/17 07:24 latex Allergy Rash Verified 07/29/17 07:24 metoprolol Allergy See Verified 07/29/17 07:24 Comments nabumetone Allergy Swelling Verified 07/29/17 07:24 of Lip/Tongue/Throat naproxen [From Naprosyn] Allergy See Verified 07/29/17 07:24 Comments propranolol [From Inderal LA] Allergy See Verified 07/29/17 07:24 Comments scopolamine Allergy Itching Verified 07/29/17 07:24 amitriptyline AdvReac See Verified 07/29/17 07:24 Comments metronidazole [From Flagyl] AdvReac See Verified 07/29/17 07:24 Comments piroxicam [From Feldene] AdvReac See Verified 07/29/17 07:24 Comments - Respiratory Orders Smoking Cessation: Smoking cessation has been advised. For more information, call the [place] Tobacco Quit Line at 5-730-CKCO-NOW. - Ancillary Orders May use pressure relief devices daily prn, May go on MELY w/family/respon constitution party w /meds at nurse discretion PRN, May consult with Dentist, Powder Shoveler, Drafter (Cad) Electrical PRN - Mobility Orders Chair, Ambulate - Rehabiliation Orders Rehab Potential: Good Rehab Orders: Evaluation for Physical Therapy, Evaluation for Occupational Therapy - Treatments Skin tear care topically daily PRN per policy List/Other: Opsite dressing, leave intact until first post-operative visit. If dressing becomes >50% saturated, contact office, remove dressing and place appropriate dressing in its place. Do not allow for dressing to get wet. Zipline/Dexter in place, plan to remove at post-operative day #14-16. Total Joint Precautions x 6 weeks Apply cold therapy wrap 3-6x/day for 20 minutes at a time. Encourage ambulation throughout the day Use Incentive spirometer 10x/hour. Elevate affected extremity above heart as tolerated. Brace: Wear knee immobilizer at night x 2 weeks. - Diet Orders Regular CERTIFICATION: I certify that the transfer of the above named patient to an Extended Care Facility is necessary for the continuing treatment of the diagnosis listed. The above information is true and accurate reflection of patient's current condition. Confidential - Redisclosure prohibited without a patient's written consent.
[2018-05-20] MEDS: traZODone 50 MG TABLET PO PRN (22:24)
[2018-05-21] MEDS: *HR* OxyCODONE/APAP 5/325 TABLET PO PRN ×5 (03:46→21:01)
[2018-05-21 04:25] LABS: Hematocrit 30.1 % (35.3-44.9); Hemoglobin 10.4 g/dL (11.5-15.4)
[2018-05-21 04:41] LABS: BUN/Creatinine Ratio 15 (6-26); Blood Urea Nitrogen 10 mg/dL (8-23); Calcium 8.1 mg/dL (8.6-10.3); Carbon Dioxide 30 mEq/L (23-29); Chloride 101 mEq/L (98-107); Glucose 141 mg/dL (70-105); Osmolality,Calculated 267 (280-300); Potassium 2.9 mEq/L (3.5-5.1); Sodium 128 mEq/L (136-145); eGFR For Non-African Americans > 60 (> 60)
[2018-05-21] MEDS: *HR* Enoxaparin 30 MG/0.3 ML SYRINGE SQ SCH ×2 (05:35→16:52)
[2018-05-21] MEDS: Budesonide/Formoterol 160/4.5 1 PUFF INH IH SCH ×2 (07:54→22:31)
--- NOTE | 2018-05-21 08:40 | Orthopedics Progress Note ---
Date of Encounter: 05/21/18 Time of Encounter: 08:38 - Assessment and Plan (1) Morbid obesity with BMI of 40.0-44.9, adult Current Visit: Yes Status: Chronic (2) Arthritis of knee, left Current Visit: No Status: Chronic (3) Status post total knee replacement, left Current Visit: No Status: Acute (4) Status post total replacement of left shoulder Current Visit: No Status: Chronic (5) Asthma Current Visit: No Status: Chronic Qualifiers: Asthma severity: unspecified severity Asthma persistence: unspecified Asthma complication type: uncomplicated Qualified Code(s): J45.909 - Unspecified asthma, uncomplicated (6) HTN (hypertension) Current Visit: No Status: Chronic Qualifiers: Hypertension type: unspecified Qualified Code(s): I10 - Essential (primary ) hypertension (7) SAVAGE (obstructive sleep apnea) Current Visit: No Status: Chronic (8) Hypokalemia Current Visit: Yes Status: Acute Subjective Interval history: Patient was seen this morning doing well without complaints. Afebrile vital signs stable. Operative extremity: Neurovascularly intact Dressing clean dry and intact Calves nontender Assessment and plan: Continue with postoperative care Hematocrit 30 plan for discharge when placement obtained Objective Vital signs: Vital Signs Temp Pulse Resp BP Pulse Ox 05/21/18 07:55 16 97 05/21/18 06:55 98.9 F 96 18 121/75 94 05/21/18 03:27 99.2 F 112 16 112/69 92 05/21/18 00:20 99.2 F 109 18 136/72 96 05/20/18 20:10 16 97 05/20/18 19:38 99.8 F H 115 18 138/83 94 05/20/18 16:15 97.4 F L 113 19 134/68 93 05/20/18 11:00 99.3 F 103 16 100/66 94 05/20/18 10:11 18 93 Intake and Output 05/20/18 05/21/18 05/21/18 23:59 07:59 15:59 Intake Total 336 / 336 Output Total 300 / 300 150 / 150 Balance 36 / 36 -150 / -150 Intake: IV Fluids 96 / 96 Lactated Ringers 1,000 ML @ 75 96 / 96 mls/hr IVC .[id number] [facility] Rx#: [id number] Oral 240 / 240 Output: Urine 300 / 300 150 / 150 Other: Meal Dinner Percent of Meal Consumed 80% # Voids 1 1 - Labs CBC & BMP: 05/21/18 03:53 05/21/18 03:53 Labs: Abnormal lab results Hgb 10.4 g/dL (11.5-15.4) L 05/21/18 03:53 Hct 30.1 % (35.3-44.9) L 05/21/18 03:53 Sodium 128 mEq/L (136-145) L 05/21/18 03:53 Potassium 2.9 mEq/L (3.5-5.1) L 05/21/18 03:53 Carbon Dioxide 30 mEq/L (23-29) H 05/21/18 03:53 Glucose 141 mg/dL (70-105) H 05/21/18 03:53 Calculated Osmolality 267 (280-300) L 05/21/18 03:53 Calcium 8.1 mg/dL (8.6-10.3) L 05/21/18 03:53 - VTE Documentation of Mechanical Device: Venous foot pump, device Consult Discharge Plan - Plan Referrals: Claudine Saha, ELIGIBILITY ANALYST [Primary Care Provider] -
[2018-05-21] MEDS: Multivit/Ca/Min/Fe/FA 1 TAB TABLET PO SCH (08:51)
[2018-05-21] MEDS: Cholecalciferol (D-3) 1,000 UNIT TABLET PO SCH (08:51)
[2018-05-21] MEDS: Magnesium Oxide 400 MG TABLET PO SCH (08:51)
[2018-05-21] MEDS: Ascorbic Acid 500 MG TABLET PO SCH (08:51)
[2018-05-21] MEDS: Cyanocobalamin (B-12) 1,000 MCG TABLET PO SCH (08:52)
[2018-05-21] MEDS: hydroCHLOROthiazide 25 MG TABLET PO SCH (08:52)
--- NOTE | 2018-05-21 17:45 | Event Note ---
Date of Encounter: 05/21/18 Time of Encounter: 12:15 PCR - POD# 2 s/p left TKR 05/19/18 Patient seen at bedside, without complaints. A&O x 3 Afebrile, vital signs stable. Dressings c/d/i with minimal drainage. no calf tenderness to palpation. Grossly NV intact Labs reviewed. H/H - stable, asymptomatic 10.4/. K 2.9, Na 128 - given supplement today will recheck tomorrow Pain control: adequate Participating in PT. All questions and concerns addressed. Educated on use of incentive spirometer. Encouraged ambulation and proper hydration. Patient educated on post-operative restrictions and post-operative care. Assessment and plan: Continue with postoperative care Discharge plan: Accepted at [facility], pending authorization.
[2018-05-21] MEDS: *HR* LORazepam 1 MG TABLET PO SCH (21:01)
[2018-05-21] MEDS: traZODone 50 MG TABLET PO PRN (21:04)
[2018-05-22] MEDS: *HR* OxyCODONE/APAP 5/325 TABLET PO PRN ×3 (01:04→08:56)
[2018-05-22] MEDS: *HR* Enoxaparin 30 MG/0.3 ML SYRINGE SQ SCH (05:24)
[2018-05-22 07:30] VITALS: BP 102/68
--- NOTE | 2018-05-22 07:51 | Orthopedics Progress Note ---
Date of Encounter: 05/22/18 Time of Encounter: 07:51 - Assessment and Plan (1) Morbid obesity with BMI of 40.0-44.9, adult Current Visit: Yes Status: Chronic (2) Arthritis of knee, left Current Visit: No Status: Chronic (3) Status post total knee replacement, left Current Visit: No Status: Acute (4) Status post total replacement of left shoulder Current Visit: No Status: Chronic (5) Asthma Current Visit: No Status: Chronic Qualifiers: Asthma severity: unspecified severity Asthma persistence: unspecified Asthma complication type: uncomplicated Qualified Code(s): J45.909 - Unspecified asthma, uncomplicated (6) HTN (hypertension) Current Visit: No Status: Chronic Qualifiers: Hypertension type: unspecified Qualified Code(s): I10 - Essential (primary ) hypertension (7) SAVAGE (obstructive sleep apnea) Current Visit: No Status: Chronic (8) Hypokalemia Current Visit: Yes Status: Acute Subjective Interval history: Patient was seen this morning doing well without complaints. Afebrile vital signs stable. Operative extremity: Neurovascularly intact Dressing clean dry and intact Calves nontender Assessment and plan: Continue with postoperative care Discharged today Objective Vital signs: Vital Signs Temp Pulse Resp BP Pulse Ox 05/22/18 07:23 99.5 F 103 18 102/68 90 05/22/18 00:20 99.2 F 107 18 125/82 92 05/21/18 22:31 15 92 05/21/18 20:15 99.7 F H 109 16 113/73 92 05/21/18 15:45 98.4 F 74 20 152/77 96 05/21/18 11:29 98.3 F 107 20 134/85 94 05/21/18 07:55 16 97 Intake and Output 05/21/18 05/21/18 05/22/18 15:59 23:59 07:59 Intake Total 360 / 360 240 / 240 100 / 100 Output Total 1500 / 1500 600 / 600 950 / 950 Balance -1140 / -1140 -360 / -360 -850 / -850 Intake: Oral 360 / 360 240 / 240 100 / 100 Output: Urine 1500 / 1500 600 / 600 950 / 950 Other: Meal Lunch Dinner Percent of Meal Consumed 50% 100% - Labs CBC & BMP: 05/21/18 03:53 05/21/18 03:53 Labs: Abnormal lab results Hgb 10.4 g/dL (11.5-15.4) L 05/21/18 03:53 Hct 30.1 % (35.3-44.9) L 05/21/18 03:53 Sodium 128 mEq/L (136-145) L 05/21/18 03:53 Potassium 2.9 mEq/L (3.5-5.1) L 05/21/18 03:53 Carbon Dioxide 30 mEq/L (23-29) H 05/21/18 03:53 Glucose 141 mg/dL (70-105) H 05/21/18 03:53 Calculated Osmolality 267 (280-300) L 05/21/18 03:53 Calcium 8.1 mg/dL (8.6-10.3) L 05/21/18 03:53 - VTE Documentation of Mechanical Device: Venous foot pump, device Consult Discharge Plan - Plan Referrals: Claudine Saha, SHINGLE CUTTER [Primary Care Provider] -
[2018-05-22] MEDS: Budesonide/Formoterol 160/4.5 1 PUFF INH IH SCH (07:56)
[2018-05-22 08:19] LABS: Hematocrit 29.3 % (35.3-44.9); Hemoglobin 10.1 g/dL (11.5-15.4)
[2018-05-22 08:33] LABS: BUN/Creatinine Ratio 15 (6-26); Blood Urea Nitrogen 9 mg/dL (8-23); Calcium 8.3 mg/dL (8.6-10.3); Carbon Dioxide 31 mEq/L (23-29); Chloride 104 mEq/L (98-107); Glucose 112 mg/dL (70-105); Osmolality,Calculated 273 (280-300); Potassium 3.1 mEq/L (3.5-5.1); Sodium 132 mEq/L (136-145); eGFR For Non-African Americans > 60 (> 60)
[2018-05-22] MEDS: hydroCHLOROthiazide 25 MG TABLET PO SCH (08:36)
[2018-05-22] MEDS: Magnesium Oxide 400 MG TABLET PO SCH (08:36)
[2018-05-22] MEDS: Cyanocobalamin (B-12) 1,000 MCG TABLET PO SCH (08:36)
[2018-05-22] MEDS: Ascorbic Acid 500 MG TABLET PO SCH (08:36)
[2018-05-22] MEDS: Cholecalciferol (D-3) 1,000 UNIT TABLET PO SCH (08:36)
[2018-05-22] MEDS: Multivit/Ca/Min/Fe/FA 1 TAB TABLET PO SCH (08:36)
== END 2018-05-22 11:13 | DRG 470 ==
LOC: SAMDAY 12:42 → 3NENU 17:41
PROVIDERS: ADMIT Orthopaedic Surgery; ATTEND Orthopaedic Surgery

== ENCOUNTER 2020-06-27 09:09 | Inpatient (IN) ==
[2020-06-27] MEDS ORDERED: Ropivacaine/PF 0.5% 30 ML VIAL ONE (09:19)
[2020-06-27] MEDS ORDERED: *HR* Promethazine 25 MG/ML VIAL IVP PRN (09:26)
[2020-06-27] MEDS ORDERED: *HR* HYDROmorphone PF 0.5 MG/0.5 ML SYRINGE IVP PRN (09:26)
[2020-06-27] MEDS ORDERED: Ondansetron 4 MG/2 ML VIAL IVP ONE (09:26)
[2020-06-27] MEDS ORDERED: *HR* OxyCODONE Immed Rel 5 MG TABLET PO PRN ×2 (09:26→12:55)
[2020-06-27] MEDS ORDERED: CeFAZolin Syr 2,000MG/20 ML 2,000 MG/20 ML SYRINGE IVPB ONE (10:05)
[2020-06-27] MEDS ORDERED: Ringers Solution, Lactated 1,000 ML IVC SCH ×2 (10:15→12:55)
[2020-06-27] MEDS ORDERED: *HR* Propofol 200 MG/20 ML VIAL IVP ONE (10:23)
[2020-06-27] MEDS ORDERED: Lidocaine -MPF 2% 2 ML VIAL ONE (10:23)
[2020-06-27] MEDS ORDERED: *HR* Midazolam HCl 2 MG/2 ML VIAL ONE (10:41)
[2020-06-27] MEDS ORDERED: *HR* FentaNYL (PF) 100 MCG/2 ML VIAL ONE (10:42)
[2020-06-27] MEDS ORDERED: ROPIVACAINE/PF/NS 0.25% 1 EACH SYRINGE INTRAART ONE (10:53)
[2020-06-27] MEDS ORDERED: Vancomycin 1,000 MG VIAL ONE (11:07)
[2020-06-27] MEDS ORDERED: Ethanol\\Acetic Acid\\Na Ace\\Ben 1,000 ML IRRIG.SOLN IR ONE (11:07)
[2020-06-27] MEDS ORDERED: Dexamethasone 4 MG/ML VIAL ONE (11:29)
[2020-06-27] MEDS ORDERED: Ondansetron 4 MG/2 ML VIAL ONE (11:29)
[2020-06-27] MEDS ORDERED: EPHEDrine 50 MG/ML VIAL ONE (11:59)
[2020-06-27] MEDS ORDERED: Sennosides 8.6 MG TABLET PO PRN (12:55)
[2020-06-27] MEDS ORDERED: *HR* OxyCODONE/APAP 5/325 TABLET PO PRN (12:55)
[2020-06-27] MEDS ORDERED: D5% in Water 1,000 ML IVC PRN (12:55)
[2020-06-27] MEDS ORDERED: Naloxone 0.4 MG/ML INJ IVP PRN (12:55)
[2020-06-27] MEDS ORDERED: Insulin LISPRO 300 UNITS/3 ML VIAL SQ SCH ×2 (12:55→21:00)
[2020-06-27] MEDS ORDERED: *HR* Dextrose 50 % in Water (Vial) 50 ML VIAL IVP PRN (12:55)
[2020-06-27] MEDS ORDERED: Ammonium Lactate 30 APPL/225 GM BOTTLE TP PRN (12:55)
[2020-06-27] MEDS ORDERED: Dextrose Gel 15 GM/37.5 ML TUBE PO PRN ×2 (12:55)
[2020-06-27] MEDS ORDERED: Ondansetron 4 MG/2 ML VIAL IVP PRN (12:55)
[2020-06-27] MEDS ORDERED: MOM Conc 10 ML UD.LIQ PO PRN (12:55)
[2020-06-27 13:55] LABS: Hematocrit 42.2 % (35.3-44.9); Hemoglobin 13.8 g/dL (11.5-15.4)
[2020-06-27] MEDS ORDERED: CeFAZolin 2 GM/120 ML BAG IVPB SCH ×2 (15:30→19:00)
[2020-06-27 15:39] VITALS: BP 113/64
[2020-06-27] MEDS ORDERED: *HR* Enoxaparin 30 MG/0.3 ML SYRINGE SQ ONE (16:37)
[2020-06-27] MEDS ORDERED: Gabapentin 100 MG CAPSULE PO SCH ×2 (21:00)
[2020-06-27] MEDS ORDERED: Magnesium Oxide 400 MG TABLET PO SCH (21:00)
[2020-06-27] MEDS ORDERED: traZODone 50 MG TABLET PO SCH (21:00)
[2020-06-27] MEDS ORDERED: Melatonin 3 MG TABLET PO SCH (21:00)
[2020-06-28] MEDS ORDERED: Multivit/Ca/Min/Fe/FA 1 TAB TABLET PO SCH (09:00)
[2020-06-28] MEDS ORDERED: Ascorbic Acid 500 MG TABLET PO SCH (09:00)
[2020-06-28] MEDS ORDERED: Cyanocobalamin (B-12) 1,000 MCG TABLET PO SCH (09:00)
[2020-06-28] MEDS ORDERED: Cholecalciferol (D-3) 1,000 UNIT (25MCG) TABLET PO SCH (09:00)
[2020-06-28] MEDS ORDERED: Aspirin Enteric Coated 81 MG Tablet PO SCH ×2 (09:00)
[2020-06-28] MEDS ORDERED: hydroCHLOROthiazide 25 MG TABLET PO SCH (09:00)
[2020-06-28] MEDS ORDERED: CRANBERRY 800 MG PO SCH (09:00)
== END 2020-06-27 17:23 | disposition home health service (06) | DRG 483 ==
LOC: SAMDAY 09:09 → 3NENU 13:49
PROVIDERS: ADMIT Orthopaedic Surgery; ATTEND Orthopaedic Surgery